=== PATIENT | female | born 1940 | race African-American/Black ===

== ENCOUNTER 2022-08-25 07:39 | Emergency (ER) | payer MEDICARE, MEDICAID ==
[~2022-08-25] VITALS: Ht 157.5 cm; Wt 81.0 kg
[2022-08-25 08:04] VITALS: BP 127/55; O2SAT 100
[2022-08-25] MEDS ORDERED: ACETAMINOPHEN 325MG TABLET PO STA (09:28)
[2022-08-25] MEDS ORDERED: SILVER SULFADIAZINE 1% CREAM 25GM TOP ONE (09:30)
[2022-08-25] MEDS ORDERED: SILV20CR13 TP (09:57)
[2022-08-25] MEDS ORDERED: ACET-2708 PO (09:57)
[2022-08-25 11:00] VITALS: PULSE 91; RESP 18; TEMP 98.7
== END 2022-08-25 11:01 | disposition home or self-care (01) ==
LOC: ER 07:39
DX: T22.112A Burn of first degree of left forearm, initial encounter (principal); T24.111A Burn of first degree of right thigh, initial encounter; T31.0 Burns involving less than 10% of body surface; E11.9 Type 2 diabetes mellitus without complications; I10 Essential (primary) hypertension; X11.8XXA Contact with other hot tap-water, initial encounter; Y93.89 Activity, other specified; Y92.89 Other specified places as the place of occurrence of the external cause; Y99.8 Other external cause status
CPT/HCPCS: 99283